=== PATIENT | male | born 2000 | race Caucasian/White ===

== ENCOUNTER 2025-03-25 22:25 | Emergency (ER) | payer OTHER ==
[~2025-03-25] VITALS: Ht 180.3 cm; Wt 84.1 kg
[2025-03-25] MEDS: KETOROLAC 60 MG/2 ML VIAL IM ONE (23:46)
[2025-03-26 02:00] VITALS: BP 135/76; TEMP 98; O2SAT 98
== END 2025-03-26 02:04 | disposition home or self-care (01) ==
LOC: M ED 22:25
DX: S20.212A Contusion of left front wall of thorax, initial encounter (principal); Y92.330 Ice skating rink (indoor) (outdoor) as the place of occurrence of the external cause; Y93.22 Activity, ice hockey; Y99.8 Other external cause status
CPT/HCPCS: 71101; 71250; 96372; 99284; J1885